=== PATIENT | male | born 1980 | race African-American/Black ===

== ENCOUNTER 2019-03-08 22:29 | Emergency (ER) | payer MEDICAID ==
[~2019-03-08] VITALS: Ht 188 cm; Wt 100.0 kg
[2019-03-09 00:05] LABS: BASOPHILS % 0.9 % (0.0-2.0); EOSINOPHILS % 1.6 % (0.0-5.0); HEMATOCRIT. 42.8 % (42.0-52.0); HEMOGLOBIN. 14.8 g/dL (14.0-18.0); LYMPHOCYTES % 39.1 % (20.0-50.0); MEAN CORPUSCULAR HEMOGLOBIN 30.1 pg (28.0-32.0); MEAN CORPUSCULAR VOLUME 87.1 fL (80.0-94.0); MEAN PLATELET VOLUME 9.3 fl (7.4-10.4); MONOCYTES % 9.4 % (2.0-8.0); PLATELET 219 x1000/uL (130-400); RED BLOOD CELL COUNT 4.92 mill/uL (4.7-6.1); RED CELL DISTRIBUTION WIDTH 13.4 % (11.6-14.6)
[2019-03-09 00:31] LABS: MONOTEST NEGATIVE (NEGATIVE)
[2019-03-09 00:59] VITALS: BP 118/74
== END 2019-03-09 01:00 | disposition home or self-care (01) ==
LOC: ER 22:29
DX: J02.9 Acute pharyngitis, unspecified (principal); F17.200 Nicotine dependence, unspecified, uncomplicated
CPT/HCPCS: 36415; 86308; 99283

== ENCOUNTER 2019-07-18 15:57 | Emergency (ER) | payer MEDICAID | END 2019-07-18 17:14 | disposition left against medical advice (07) | LOC: ER 17:12 | DX: K08.89 Other specified disorders of teeth and supporting structures (principal); Z53.21 Procedure and treatment not carried out due to patient leaving prior to being seen by health care provider ==

== ENCOUNTER 2019-07-18 17:47 | Emergency (ER) | payer MEDICAID ==
[~2019-07-18] VITALS: Ht 188 cm; Wt 99.0 kg
[2019-07-18] MEDS ORDERED: IBUPROFEN 600MG TABLET PO ONE (21:30)
[2019-07-18 21:38] VITALS: BP 113/68
== END 2019-07-18 21:40 | disposition home or self-care (01) ==
LOC: ER 18:17
DX: K02.9 Dental caries, unspecified (principal); K08.89 Other specified disorders of teeth and supporting structures
CPT/HCPCS: 99283